=== PATIENT | male | born 1995 | race Caucasian/White ===

== ENCOUNTER 2020-01-06 19:46 | Emergency (ER) | payer OTHER ==
[~2020-01-06] VITALS: Ht 175.3 cm; Wt 61.2 kg
[2020-01-06 20:55] LABS: ABSOLUTE LYMPHOCYTES 1.9 thou/uL (0.8-5.3); ABSOLUTE MONOCYTES 0.3 thou/uL (0.0-1.2); ABSOLUTE NEUTROPHILS 4.9 thou/uL (1.6-8.1); BASOPHILS 0.4 %; EOSINOPHILS 0.2 %; HEMATOCRIT 43.9 % (42.0-52.0); LYMPHOCYTES 26.8 %; MCHC 34.2 g/dL (28.0-37.0); MCV 84.8 fL (80.0-100.0); MONOCYTES 4.4 %; MPV 8.1 fl. (7.2-11.1); NUCLEATED RBCS 0 /100WBC; PLATELET COUNT* 300 thou/uL (150-400); POLYS 68.2 %; RBC 5.18 mil/uL (4.50-6.00); RDW-CV 12.9 % (10.5-14.5); WBC 7.1 thou/uL (4.0-11.0)
[2020-01-06 21:02] LABS: CREATININE 0.9 mg/dL (0.6-1.3); POTASSIUM 3.5 mmol/L (3.5-5.1)
[2020-01-06 21:16] LABS: ALBUMIN 4.9 g/dL (3.4-5.0); TOTAL PROTEIN 8.4 g/dL (6.4-8.2)
[2020-01-06 21:33] VITALS: BP 120/77
--- NOTE | 2020-01-07 16:34 | EKG ---
[place] [address] ELECTROCARDIOGRAM REPORT Name: PRIMITIVO VELIZ Room: [facility]#: [id number] Admission: 01/06/20 Attend Phys: Discharge: 01/06/20 Date of : 89 Date of Service: 01/06/202006 Report #: [id number] THIS REPORT FOR: //name// [facility] ED Test Date: 2020-01-06 Test Time: 20:07:24 Pat Name: PRIMITIVO BLOUNT Department: Room: Gender: [employer] Supervisor: TITI : 1995 Requested By: Kirsten Nesbitt Order Number: [id number] MD: Keyshawn Jefferson Measurements Intervals [place] Rate: 123 P: 79 WI: 133 QRS: 91 QRSD: 91 T: 49 QT: 348 QTc: 498 Interpretive Statements Sinus tachycardia Atrial premature complex Borderline right axis deviation Minimal ST depression, diffuse leads Prolonged QT interval No previous ECG available for comparison Electronically Signed On 01-07-2020 16:32:38 CDT by Keyshawn Jefferson [email or web address] <ELECTRONICALLY SIGNED> By: Keyshawn Jefferson MD, FAC 01/07/20 1632 06 06 Keyshawn Jefferson MD, [facility] /EPI
== END 2020-01-06 21:36 | disposition home or self-care (01) ==
LOC: M.ERS 19:46
PROVIDERS: Emergency Medicine
DX: F41.9 Anxiety disorder, unspecified (principal); R00.0 Tachycardia, unspecified; Z91.018 Allergy to other foods